=== PATIENT | male | born 1955 | race Caucasian/White ===

== ENCOUNTER 2019-07-16 21:27 | Emergency (ER) | payer SELFPAY ==
[~2019-07-16] VITALS: Ht 182.9 cm; Wt 104.3 kg
[2019-07-16 21:39] VITALS: BP 132/82
--- NOTE | 2019-07-16 21:39 | NUR ---
to bed # 07 ambulatory
--- NOTE | 2019-07-16 21:50 | NUR ---
PT TAKEN TO RAD VIA W/C
--- NOTE | 2019-07-16 22:01 | NUR ---
PT RETURNED FROM RAD VIA W/C
--- NOTE | 2019-07-16 22:05 | NUR ---
PT CAME TO ER C/O OF LEFT KNEE PAIN X 3 WEEKS. PAIN LEVEL 9/10 WHEN AMBULATING WITH CANE. PT HAD HX OF KNEE SURGERY IN 2003. PER PT HIS KNEE WILL SWELL UP BUT GO AWAY AFTER A COUPLE DAYS. PER PT KNEE HAS BEEN SWOLLEN FOR THE LAST 3 WEEKS AND WILL NOT GO AWAY. PT HAS BEEN TAKING MOTRIN FOR THE LAST 3 WEEKS WITHOUT ANY RELIEF. PT HAS APPOINTMENT WITH PCP ON 07/23/19. MED HX: TRIPLE BYPASS 2017, DM, HTN. SAFETY MEASURES IN PLACE. ERMD AT BEDSIDE
[2019-07-16] MEDS ORDERED: MORPHINE SULFATE 2 MG/ML SYR IM ONE (22:35)
[2019-07-16 23:09] VITALS: BP 120/74
--- NOTE | 2019-07-16 23:09 | NUR ---
Patient discharged with v/s stable. Written and verbal after care instructions given and explained. Patient alert, oriented and verbalized understanding of instructions. Ambulatory with steady gait. All questions addressed prior to discharge. ID band removed. Patient advised to follow up with PMD. Rx of TRAMADOL AND NORCO WAS given. Patient educated on indication of medication including possible reaction and side effects. Opportunity to ask questions provided and answered.
== END 2019-07-16 23:09 | disposition home or self-care (01) ==
LOC: MED 21:27
DX: M25.562 Pain in left knee (principal)
CPT/HCPCS: 73562; 96372; 99283; J2270